=== PATIENT | male | born 1965 | race Caucasian/White ===

== ENCOUNTER 2022-04-21 09:52 | Emergency (ER) | payer OTHER ==
[~2022-04-21 09:52] MED LIST: CARAFATE1 GM PO; OMEPRAZOLE 20MG20 MG PO; VENTOLIN HFA IN18 GM INH
[2022-04-21] MEDS ORDERED: NORCO 5/3251 EACH PO (11:47)
[2022-04-21] MEDS ORDERED: PREDNISONE 20MG20 MG PO (11:53)
== END 2022-04-21 12:00 | disposition home or self-care (01) ==
LOC: FER 09:52
DX: G89.29 Other chronic pain (principal); M54.50 Low back pain, unspecified; J44.9 Chronic obstructive pulmonary disease, unspecified; F17.200 Nicotine dependence, unspecified, uncomplicated; Z88.5 Allergy status to narcotic agent
CPT/HCPCS: 99283; J1885